=== PATIENT | female | born 1980 | race African-American/Black ===

== ENCOUNTER 2017-12-07 16:56 | Emergency (ER) | payer SELFPAY ==
[~2017-12-07] VITALS: Ht 170.2 cm; Wt 80.0 kg
[2017-12-07 16:57] VITALS: BP 124/80; PULSE 118; RESP 18; TEMP 99.2; O2SAT 98
--- NOTE | 2017-12-07 17:29 | PD ---
HPI Chief Complaint: Cold / Flu Symptoms Time Seen by Provider: 17:26 Travel History International Travel<30 days: No Contact w/Intl Traveler<30days: No Traveled to known affect area: No History of Present Illness HPI 37-year-old female presents for evaluation. For 2 days she has had chills, cough, congestion, sore throat. Symptoms are mild with no aggravating or alleviating factors. She reports that she has had family members with similar symptoms. Denies rash, recent travel, nausea or vomiting, abdominal pain, dysuria. She has no other complaints at this time. PFSH Past Medical History ?: Not LMP: 11/13/17 Social History Alcohol Use: Yes Tobacco Use: Yes Allergies-Medications (Allergen,Severity, Reaction): Coded Allergies: No Known Allergies (Verified Allergy, Unknown, 12/07/17) Reported Meds & Prescriptions Reported Meds & Active Scripts Active Tessalon Perles (Benzonatate) 100 Mg Cap 100 Mg PO TID PRN Flonase Nasal [facility] (Fluticasone Nasal [facility]) 50 Mcg/Act [facility] 100 Mcg EACH NARE BID Review of Systems Except as stated in HPI: all other systems reviewed are Neg Physical Exam Narrative GENERAL: Well-developed well-nourished female in no acute distress SKIN: Warm and dry. HEAD: Atraumatic. Normocephalic. EYES: Pupils equal and round. No scleral icterus. No injection or drainage. ENT: No nasal bleeding or discharge. Mucous membranes pink and moist. Tympanic membranes appear normal. No oral pharyngeal erythema or exudate. NECK: Trachea midline. No JVD. No lymphadenopathy. CARDIOVASCULAR: Regular rate and rhythm. No murmur appreciated. RESPIRATORY: No accessory muscle use. Clear to auscultation. Breath sounds equal bilaterally. GASTROINTESTINAL: Abdomen soft, non-tender, nondistended. Hepatic and splenic margins not palpable. Data Data Last Documented VS Vital Signs Date Time Temp Pulse Resp B/P (MAP) Pulse Ox O2 Delivery O2 Flow Rate FiO2 12/07/17 16:57 99.2 118 18 124/80 (95) 98 Orders Orders Influenzae A/B Antigen (12/07/17 17:26) Ed Discharge Order (12/07/17 19:04) MDM Medical Decision Making Medical Screen Exam Complete: Yes Emergency Medical Condition: Yes Medical Record Reviewed: Yes Differential Diagnosis Bronchitis, pneumonia, influenza, rhinitis, sinusitis Narrative Course The patient appears well. An influenza antigen test was performed and is negative. She appears to have a viral upper respiratory infection. She is stable for discharge. Diagnosis Primary Impression: Upper respiratory infection Departure Forms: Tests/Procedures, Work Release Enter return to work date: Dec 08, 2017 Additional Instructions: Medication as needed. Stay well hydrated well-nourished. Return for any emergent medical conditions. Med/Other Pt SpecificInfo: Prescription(s) given Scripts Benzonatate (Tessalon Perles) 100 Mg Cap 100 MG PO TID Y for COUGH, #30 CAP 0 Refills Prov: Mulugeta Retana MD 12/07/17 Fluticasone Nasal [facility] (Flonase Nasal [facility]) 50 Mcg/Act [facility] 100 MCG EACH NARE BID for Allergies, #1 BOTTLE 0 Refills Prov: Mulugeta Retana MD 12/07/17 Disposition: 01 DISCHARGE HOME Condition: Stable Kalin Lenz Dec 07, 2017 17:29
[2017-12-07] MEDS ORDERED: FLUT1SPR5 EACH NARE (19:04)
[2017-12-07] MEDS ORDERED: BENZ100 PO (19:04)
== END 2017-12-07 19:15 | disposition home or self-care (01) ==
LOC: NEPK 16:56
DX: J06.9 Acute upper respiratory infection, unspecified (principal); Z72.0 Tobacco use
CPT/HCPCS: 87804; 99283

== ENCOUNTER 2018-01-01 14:11 | Emergency (ER) | payer SELFPAY ==
[~2018-01-01] VITALS: Ht 170.2 cm; Wt 75.0 kg
[~2018-01-01 14:11] MED LIST: BENZ100 PO; FLUT1SPR5 EACH NARE
[2018-01-01 14:30] VITALS: BP 123/91; PULSE 105; RESP 18; TEMP 99.2; O2SAT 100
--- NOTE | 2018-01-01 17:13 | PD ---
HPI Chief Complaint: ENT Complaint Time Seen by Provider: 17:02 Travel History International Travel<30 days: No Contact w/Intl Traveler<30days: No Traveled to known affect area: No History of Present Illness HPI 37-year-old female here for evaluation of sore throat and left ear pain. The patient symptoms have been going on for 4 days. She has had a slight cough. She has had subjective fevers and chills as well. States that the pain in her throat is worse when she wakes up in the morning and improves throughout the day. She has not taken anything for her symptoms. No vomiting or diarrhea. No abdominal pain. PFSH Past Medical History Medical other: Yes Reproductive: Yes (ECTOPIC ) Influenza Vaccination: No ?: Not LMP: 12/17/17 Social History Alcohol Use: Yes (TWICE A WEEK) Tobacco Use: Yes (/2 PPD) Substance Use: Yes (MARIJUANA) Allergies-Medications (Allergen,Severity, Reaction): Coded Allergies: No Known Allergies (Verified Allergy, Unknown, 12/07/17) Reported Meds & Prescriptions Reported Meds & Active Scripts Active Tessalon Perles (Benzonatate) 100 Mg Cap 100 Mg PO TID PRN Flonase Nasal [place] (Fluticasone Nasal [facility]) 50 Mcg/Act [place] 100 Mcg EACH NARE BID Review of Systems Except as stated in HPI: all other systems reviewed are Neg Physical Exam Narrative GENERAL: Well-developed, well-nourished, comfortable, no apparent distress. SKIN: Focused skin assessment warm/dry. No rash. HEAD: Atraumatic. Normocephalic. EYES: Pupils equal and round. No scleral icterus. No injection or drainage. ENT: No nasal bleeding or discharge. Mucous membranes pink and moist. Left tympanic membrane is erythematous and bulging. Left external auditory canals normal. Right tympanic membrane and external auditory canal are normal. Pharynx with mild erythema with mild bilateral exudates. Uvula is midline. Normal phonation. No drooling or stridor. NECK: Trachea midline. No JVD. No nuchal rigidity. No cervical lymphadenopathy. CARDIOVASCULAR: Regular rate and rhythm. RESPIRATORY: No accessory muscle use. Clear to auscultation. Breath sounds equal bilaterally. GASTROINTESTINAL: Abdomen soft, non-tender, nondistended. MUSCULOSKELETAL: No obvious deformities. No clubbing. No cyanosis. No edema. NEUROLOGICAL: Awake and alert. No obvious cranial nerve deficits. Motor grossly within normal limits. Normal speech. PSYCHIATRIC: Appropriate mood and affect; insight and judgment normal. Data Data Last Documented VS Vital Signs Date Time Temp Pulse Resp B/P (MAP) Pulse Ox O2 Delivery O2 Flow Rate FiO2 01/01/18 14:30 99.2 105 18 123/91 (102) 100 Orders Orders Group A Rapid Strep Screen (01/01/18 14:32) Strep Culture (Group A) (01/01/18 14:30) Amoxicillin (Trimox) (01/01/18 17:15) [facility] Medical Decision Making Medical Screen Exam Complete: Yes Emergency Medical Condition: Yes Differential Diagnosis Strep pharyngitis, pharyngitis, viral illness, URI, otitis media Narrative Course Vital signs reviewed. Heart rate improved from 105-82 without any intervention. Group A strep is negative. Patient has pharyngitis with left otitis media. She is overall very well- appearing and is tolerating her secretions. Normal phonation. Uvula is midline. Plan is to start her on amoxicillin and have her follow-up with a primary care physician this week. She was advised on when to return to the emergency department. She verbalizes understanding and agreement with plan. Diagnosis Primary Impression: Pharyngitis Qualified Codes: J02.9 - Acute pharyngitis, unspecified Additional Impression: Otitis media Qualified Codes: H66.90 - Otitis media, unspecified, unspecified ear Referrals: [facility] 3 days Additional Instructions: Follow-up with a primary care physician this week. Stay hydrated with plenty of fluids. Take Tylenol and ibuprofen for fever. Return to the emergency department for worsening symptoms or any other concerns. Disposition: 01 DISCHARGE HOME Condition: Stable Michael Ramos MD Jan 01, 2018 17:13
[2018-01-01] MEDS ORDERED: AMOXICILLIN 875 MG TAB PO ONE (17:15)
== END 2018-01-01 18:03 | disposition home or self-care (01) ==
LOC: NEPD 14:11
DX: J02.9 Acute pharyngitis, unspecified (principal); H66.92 Otitis media, unspecified, left ear; F17.200 Nicotine dependence, unspecified, uncomplicated; F12.90 Cannabis use, unspecified, uncomplicated
CPT/HCPCS: 87081; 87880; 99283